=== PATIENT | female | born 1985 | race Asian ===

== ENCOUNTER 2024-09-15 10:22 | Emergency (ER) | payer MEDICAID ==
[~2024-09-15] VITALS: Ht 157.5 cm; Wt 57.0 kg
[2024-09-15 10:42] VITALS: O2SAT 98
[2024-09-15 13:16] VITALS: BP 102/55; PULSE 84; RESP 16; TEMP 36.66960; O2SAT 98
== END 2024-09-15 13:25 | disposition home or self-care (01) ==
LOC: ER 10:22
DX: B34.9 Viral infection, unspecified (principal)
CPT/HCPCS: 71045; 99283; Z7610